=== PATIENT | male | born 1945 | race Caucasian/White ===

== ENCOUNTER 2024-09-09 12:30 | Outpatient (RCR) | payer MEDICARE, BC, SELFPAY ==
[2024-07-01 16:34] VITALS: BMI 45.2
[2024-07-01 19:22] VITALS: BMI 45.2
[2024-07-09 17:03] VITALS: BMI 45.2
[2024-07-13 16:34] VITALS: BMI 45.2
[2024-07-16 12:43] VITALS: BMI 45.2
[2024-07-20 16:56] VITALS: BMI 45.2
[2024-07-23 12:52] VITALS: BMI 45.2
[2024-07-27 16:41] VITALS: BMI 45.2
[2024-08-03 16:42] VITALS: BMI 45.2
[2024-08-20 13:54] VITALS: BMI 45.2
[2024-09-09 12:25] VITALS: BMI 45.2
== END 2024-09-09 15:44 | disposition home or self-care (01) ==
PROVIDERS: Visit Provider Family Medicine
DX: I89.0 Lymphedema, not elsewhere classified (principal); M79.89 Other specified soft tissue disorders; Z51.89 Encounter for other specified aftercare
CPT/HCPCS: 97110; 97140; 97166; 97530; 97535; X5282